=== PATIENT | female | born 1965 | race Caucasian/White ===

== ENCOUNTER 2020-02-17 15:14 | Emergency (ER) | payer BC ==
[2020-02-17] MEDS ORDERED: Zofran 4 MG/2 ML VIAL IV ONE (15:28)
--- NOTE | 2020-02-17 15:28 | ERPHSYRPT ---
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 Approximately 1 week ago patient began having symptoms of headache, sore throat, muscle aches and pains, nausea vomiting and diarrhea. Her symptoms have not improved per her report. Patient denies fever. She does not have chest pain. He is mildly short of breath. Timing/Duration: week(s) (one) Cough Quality/Degree: mild Possible Cause: no prior episodes, illness exposure (Possible COVID-19 exposure) Associated Symptoms: earache, muscle aches, shortness of breath, sore throat Allergies/Adverse Reactions: levofloxacin [From Levaquin] Allergy (Verified 08/20/15 18:33) Penicillins Allergy (Verified 08/20/15 18:33) Sulfa (Sulfonamide Antibiotics) [Sulfa(Sulfonamide Antibiotics)] Allergy (Verified 08/20/15 18:33) Home Medications: Gabapentin 600 mg PO BID 08/20/15 [History] Loratadine 10 mg [Claritin 10 mg] 10 mg PO DAILY PRN PRN 08/20/15 [History] Paroxetine HCl [Paxil] 20 mg PO DAILY 02/17/20 [History] clonazePAM [Clonazepam] 0.5 mg PO TID PRN PRN 02/17/20 [History] Hx Tetanus, Diphtheria Vaccination/Date Given: Yes Hx Influenza Vaccination/Date Given: Yes Hx Pneumococcal Vaccination/Date Given: Yes Travel Risk - International Travel Have you traveled outside of the country in past 3 weeks: No - Coronavirus Screening Are you exhibiting any of the following symptoms?: Yes Symptoms: Cough: New Onset, Shortness of Breath, Vomiting/Diarrhea, Headaches/Body Aches/Fatigue Close contact with a COVID-19 positive Pt in past 14-21 Days: Yes - Review of Systems Constitutional: No Symptoms Eyes: No Symptoms Ears, Nose, & Throat: Throat Pain Respiratory: Cough, Dyspnea Cardiac: No Symptoms Abdominal/Gastrointestinal: Nausea, Vomiting, Diarrhea Genitourinary Symptoms: No Symptoms Musculoskeletal: No Symptoms Skin: No Symptoms Neurological: No Symptoms Psychological: No Symptoms Endocrine: No Symptoms Hematologic/Lymphatic: No Symptoms Immunological/Allergic: No Symptoms All Other Systems: Reviewed and Negative - Past Medical History Pertinent Past Medical History: Yes Neurological History: Migraines ENT History: No Pertinent History Cardiac History: No Pertinent History Respiratory History: No Pertinent History Endocrine Medical History: Other (Pituitary tumor) Musculoskeletal History: No Pertinent History GI Medical History: No Pertinent History History: No Pertinent History Psycho-Social History: Depression Female Reproductive Disorders: No Pertinent History Other Medical History: CHRONIC BACK PAIN - Past Surgical History Past Surgical History: Yes Neuro Surgical History: No Pertinent History Cardiac: No Pertinent History Respiratory: No Pertinent History Gastrointestinal: Cholecystectomy Genitourinary: No Pertinent History Musculoskeletal: Orthopedic Surgery Female Surgical History: Tubal Ligation, Other Other Surgical History: nasal surgery - Social History Smoking Status: Current every day smoker How long have you smoked: 35 Exposure to second hand smoke: Yes Alcohol Use: Socially Drug Use: none Patient Lives Alone: No Significant Family History: other - Nursing Vital Signs Nursing Vital Signs: Initial Vital Signs Temperature 98.6 F 02/17/20 15:20 Pulse Rate 76 02/17/20 15:20 Respiratory Rate 18 02/17/20 15:20 Blood Pressure 165/100 02/17/20 15:20 O2 Sat by Pulse Oximetry 99 02/17/20 15:20 Pain Scale Pain Intensity 3 - Physical Exam General Appearance: no apparent distress, alert, anxiety Eye Exam: eyes nml inspection Ears, Nose, Throat Exam: normal ENT inspection, moist mucous membranes, other (eDentulous; tympanic membrane on the right shows chronic scarring. No infection present. Left tympanic membrane and canal are within normal limits) Neck Exam: normal inspection, non-tender, supple, full range of motion Respiratory Exam: normal breath sounds, lungs clear, airway intact, No chest tenderness, No respiratory distress Cardiovascular Exam: regular rate/rhythm, normal heart sounds, normal peripheral pulses Gastrointestinal/Abdomen Exam: soft, normal bowel sounds, No tenderness Pelvic Exam: not done Rectal Exam: not done Back Exam: normal inspection, normal range of motion, No CVA tenderness, No vertebral tenderness Extremity Exam: normal inspection, normal range of motion, pelvis stable Neurologic Exam: alert, oriented x 3, cooperative, 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 No comparison EKGs available) Ordered Tests: Active Orders 24 hr Category Date Time Status Analog Ic Design Architect STAT Care 02/17/20 17:03 Active EKG-ER Only STAT Care 02/17/20 15:28 Active IV Insertion STAT Care 02/17/20 15:28 Active Isolation, Initiate & Maintain STAT Care 02/17/20 15:28 Active Pulse Oximetry (ED) STAT Care 02/17/20 15:28 Active CHEST 1 VIEW (PORTABLE) Stat Exams 02/17/20 15:29 Completed CHEST WITH CONTRAST [CT] Stat Exams 02/17/20 17:04 Taken BLOOD CULTURE Stat Lab 02/17/20 16:10 Received CBC W DIFF Stat Lab 02/17/20 15:50 Completed CMP Stat Lab 02/17/20 15:50 Completed D-DIMER QUANTITATIVE Stat Lab 02/17/20 15:50 Completed Ferritin Stat Lab 02/17/20 15:50 Completed INFLUENZA A+B SHINE Stat Lab 02/17/20 16:15 Completed LDH-LACTATE DEHYDROGENASE Stat Lab 02/17/20 15:50 Completed Lactic Acid Stat Lab 02/17/20 15:46 Completed Marion Screen Stat Lab 02/17/20 15:50 Completed TROPONIN Q3H Lab 02/17/20 15:50 Completed TROPONIN Q3H Lab 02/17/20 18:30 Ordered TROPONIN Q3H Lab 02/17/20 21:30 Ordered TROPONIN Q3H Lab 02/18/20 00:30 Ordered TROPONIN Q3H Lab 02/18/20 03:30 Ordered Medication Summary Generic Name Dose Route Start Last Admin Trade Name Freq PRN Reason Stop Dose Admin Sodium Chloride 1,000 mls @ 100 mls/hr 02/17/20 15:30 02/17/20 15:46 Sodium Chloride 0.9% 1000 Ml IV 03/18/20 15:29 100 mls/hr .Q10H JHON Administration Potassium Chloride 20 meq in 100 mls @ 50 mls/hr 02/17/20 16:45 02/17/20 17:08 Potassium Chloride 20 Meq In Water 100ml IV 02/17/20 18:44 50 mls/hr STAT ONE Administration Discontinued Medications Generic Name Dose Route Start Last Admin Trade Name Fernando PRN Reason Stop Dose Admin Potassium Chloride Confirm 02/17/20 17:06 Potassium Chloride 20 Meq In Water 100ml Administered 02/17/20 17:07 Dose 100 mls @ ud IV .STK-MED ONE Ondansetron HCl 4 mg 02/17/20 15:28 02/17/20 15:47 Zofran 4 Mg/2 Ml Vial IV 02/17/20 15:29 4 mg STAT ONE Administration Ondansetron HCl Confirm 02/17/20 15:41 Zofran 4 Mg/2 Ml Vial Administered 02/17/20 15:42 Dose 4 mg .ROUTE .STK-MED ONE Potassium Chloride 20 meq 02/17/20 16:45 02/17/20 17:09 Klor Con 10 Meq PO 02/17/20 16:46 20 meq STAT ONE Administration Potassium Chloride Confirm 02/17/20 17:06 Klor Con 10 Meq Administered 02/17/20 17:07 Dose 20 meq PO .STK-MED ONE Lab/Rad Data: Laboratory Result Diagrams 02/17/20 15:50 02/17/20 15:50 Laboratory Results 02/17/20 02/17/20 02/17/20 Range/Units 16:15 16:15 15:50 WBC (4.0-10.5) K/mm3 RBC (4.1-5.4) M/mm3 Hgb (12.0-16.0) gm/dl Hct (35-47) % MCV (78-100) fl MCH (26-32) pg MCHC (32-36) g/dl RDW (11.5-14.0) % Plt Count (150-450) K/mm3 MPV (7.5-11.0) fl Gran % (36.0-66.0) % Eos # (Auto) (0-0.5) Absolute Lymphs (auto) (1.0-4.6) Absolute Monos (auto) (0.0-1.3) Lymphocytes % (24.0-44.0) % Monocytes % (0.0-12.0) % Eosinophils % (0.00-5.0) % Basophils % (0.0-0.4) % Absolute Granulocytes (1.4-6.9) Basophils # (0-0.4) D-Dimer (215-500) ng/mL Sodium (137-145) mmol/L Potassium (3.5-5.1) mmol/L Chloride (98-107) mmol/L Carbon Dioxide (22-30) mmol/L Anion Gap (5-15) MEQ/L BUN (7-17) mg/dL Creatinine (0.52-1.04) mg/dL Estimated GFR ML/MIN Glucose (74-106) mg/dL Lactic Acid (0.4-2.0) Calcium (8.4-10.2) mg/dL Ferritin (11.1-264) ng/mL Total Bilirubin (0.2-1.3) mg/dL AST (14-36) U/L ALT (0-35) U/L Alkaline Phosphatase (38-126) U/L Lactate Dehydrogenase (120-246) U/L Troponin I (0.000-0.034) ng/mL Serum Total Protein (6.3-8.2) g/dL Albumin (3.5-5.0) g/dL Monoscreen NEGATIVE (Negative) Influenza Type A Ag NEGATIVE (NEGATIVE) Influenza Type B Ag NEGATIVE (NEGATIVE) Group A Strep Antibody NOT DETECTED (NEGATIVE) 02/17/20 02/17/20 02/17/20 Range/Units 15:50 15:50 15:50 WBC (4.0-10.5) K/mm3 RBC (4.1-5.4) M/mm3 Hgb (12.0-16.0) gm/dl Hct (35-47) % MCV (78-100) fl MCH (26-32) pg MCHC (32-36) g/dl RDW (11.5-14.0) % Plt Count (150-450) K/mm3 MPV (7.5-11.0) fl Gran % (36.0-66.0) % Eos # (Auto) (0-0.5) Absolute Lymphs (auto) (1.0-4.6) Absolute Monos (auto) (0.0-1.3) Lymphocytes % (24.0-44.0) % Monocytes % (0.0-12.0) % Eosinophils % (0.00-5.0) % Basophils % (0.0-0.4) % Absolute Granulocytes (1.4-6.9) Basophils # (0-0.4) D-Dimer 709 H* (215-500) ng/mL Sodium (137-145) mmol/L Potassium (3.5-5.1) mmol/L Chloride (98-107) mmol/L Carbon Dioxide (22-30) mmol/L Anion Gap (5-15) MEQ/L BUN (7-17) mg/dL Creatinine (0.52-1.04) mg/dL Estimated GFR ML/MIN Glucose (74-106) mg/dL Lactic Acid (0.4-2.0) Calcium (8.4-10.2) mg/dL Ferritin 104 (11.1-264) ng/mL Total Bilirubin (0.2-1.3) mg/dL AST (14-36) U/L ALT (0-35) U/L Alkaline Phosphatase (38-126) U/L Lactate Dehydrogenase (120-246) U/L Troponin I < 0.012 (0.000-0.034) ng/mL Serum Total Protein (6.3-8.2) g/dL Albumin (3.5-5.0) g/dL Monoscreen (Negative) Influenza Type A Ag (NEGATIVE) Influenza Type B Ag (NEGATIVE) Group A Strep Antibody (NEGATIVE) 02/17/20 02/17/20 02/17/20 Range/Units 15:50 15:50 15:46 WBC 10.5 (4.0-10.5) K/mm3 RBC 4.43 (4.1-5.4) M/mm3 Hgb 13.4 (12.0-16.0) gm/dl Hct 42.0 (35-47) % MCV 94.8 (78-100) fl MCH 30.2 (26-32) pg MCHC 31.9 L (32-36) g/dl RDW 14.3 H (11.5-14.0) % Plt Count 249 (150-450) K/mm3 MPV 11.0 (7.5-11.0) fl Gran % 66.6 H (36.0-66.0) % Eos # (Auto) 0.28 (0-0.5) Absolute Lymphs (auto) 2.57 (1.0-4.6) Absolute Monos (auto) 0.65 (0.0-1.3) Lymphocytes % 24.4 (24.0-44.0) % Monocytes % 6.2 (0.0-12.0) % Eosinophils % 2.7 (0.00-5.0) % Basophils % 0.1 (0.0-0.4) % Absolute Granulocytes 7.01 H (1.4-6.9) Basophils # 0.01 (0-0.4) D-Dimer (215-500) ng/mL Sodium 141 (137-145) mmol/L Potassium 2.7 L* (3.5-5.1) mmol/L Chloride 103 (98-107) mmol/L Carbon Dioxide 31 H (22-30) mmol/L Anion Gap 10.9 (5-15) MEQ/L BUN 7 (7-17) mg/dL Creatinine 0.73 (0.52-1.04) mg/dL Estimated GFR > 60.0 ML/MIN Glucose 89 (74-106) mg/dL Lactic Acid 1.5 (0.4-2.0) Calcium 8.8 (8.4-10.2) mg/dL Ferritin (11.1-264) ng/mL Total Bilirubin 0.30 (0.2-1.3) mg/dL AST 24 (14-36) U/L ALT 15 (0-35) U/L Alkaline Phosphatase 84 (38-126) U/L Lactate Dehydrogenase 196 (120-246) U/L Troponin I (0.000-0.034) ng/mL Serum Total Protein 6.7 (6.3-8.2) g/dL Albumin 3.8 (3.5-5.0) g/dL Monoscreen (Negative) Influenza Type A Ag (NEGATIVE) Influenza Type B Ag (NEGATIVE) Group A Strep Antibody (NEGATIVE) - Progress Progress: improved, re-examined Air Movement: good Progress Note: 02/17/20 16:34 Chest x-ray shows no acute cardiopulmonary issues 02/17/20 18:06 CAT scan of the chest with contrast is negative for pulmonary embolism. There is a small hiatal hernia present. There are no acute cardiopulmonary findings Blood Culture(s) Obtained: Yes Antibiotics given: No Counseled pt/family regarding: lab results, diagnosis, need for follow-up, rad results - Departure Departure Disposition: Home Clinical Impression: Vomiting and diarrhea, Hypokalemia Condition: Stable Critical Care Time: No Referrals: KIET WILLETT MD [Primary Care Provider] - Additional Instructions: Drink plenty of fluids. Take your medication as prescribed. Follow-up with your primary care physician for further management. Quarantine yourself until you receive the COVID-19 test results. Return to the lab on 02/19/2020 for lab recheck of your potassium level. Forms: Work/School Release Form Prescriptions: Ondansetron ODT 4 MG [Zofran Odt 4 mg] 4 mg PO Q6H PRN PRN #10 tab.rapdis PRN Reason: Vomiting Potassium Chloride 10 Meq Tab* [Klor Con 10 MEQ] 10 meq PO DAILY #5 tab
[2020-02-17] MEDS ORDERED: Sodium Chloride 0.9% 1000 ML 1,000 ML IV SCH (15:30)
[2020-02-17] MEDS ORDERED: Sodium Chloride 0.9% 1000 ML 1,000 ML ONE (15:41)
[2020-02-17] MEDS ORDERED: Zofran 4 MG/2 ML VIAL ONE (15:41)
[2020-02-17 16:27] LABS: Absolute Neutrophil Ct (ANC) 7.01 (1.4-6.9); BASOPHIL % 0.1 % (0.0-0.4); Basophil (Absolute #) 0.01 (0-0.4); Eosinophil % 2.7 % (0.00-5.0); Eosinophil (Absolute #) 0.28 (0-0.5); Hemoglobin 13.4 gm/dl (12.0-16.0); Lymphocyte (Absolute #) 2.57 (1.0-4.6); Lymphocytes % 24.4 % (24.0-44.0); Mean Cell Volume 94.8 fl (78-100); Mean Corpuscular Hemoglobin 30.2 pg (26-32); Mean Corpuscular Hgb Concent. 31.9 g/dl (32-36); Monocyte (Absolute #) 0.65 (0.0-1.3); Monocytes % 6.2 % (0.0-12.0); Neutrophil % 66.6 % (36.0-66.0); Platelet Count 249 K/mm3 (150-450); Red Blood Count 4.43 M/mm3 (4.1-5.4); Red Cell Distribution Width 14.3 % (11.5-14.0); White Blood Count 10.5 K/mm3 (4.0-10.5)
--- NOTE | 2020-02-17 16:30 | XRAY ---
Indication: Cough, congestion, short of breath. Earache and fatigue. Comparison: January 03, 2019. Portable chest again demonstrates minimal left base subsegmental atelectasis/scarring and tiny hilar calcified nodes. Remaining heart and lungs unremarkable. Bony thorax intact again with mild scoliosis. No new/acute findings.
[2020-02-17 16:41] LABS: ALBUMIN 3.8 g/dL (3.5-5.0); ALKALINE PHOSPHATASE 84 U/L (38-126); ANION GAP 10.9 MEQ/L (5-15); BLOOD UREA NITROGEN 7 mg/dL (7-17); CHLORIDE 103 mmol/L (98-107); Calcium 8.8 mg/dL (8.4-10.2); Carbon Dioxide 31 mmol/L (22-30); Creatinine 1 0.73 mg/dL (0.52-1.04); EST GLOMERULAR FILTRATION RATE > 60.0 ML/MIN; Glucose 89 mg/dL (74-106); LDH-LACTATE DEHYDROGENASE 196 U/L (120-246); SGOT/AST 24 U/L (14-36); SGPT/ALT 15 U/L (0-35); SODIUM 141 mmol/L (137-145); Total Protein 6.7 g/dL (6.3-8.2)
[2020-02-17 16:41] LABS: INFLUENZA A NEGATIVE (NEGATIVE); INFLUENZA B NEGATIVE (NEGATIVE)
[2020-02-17 16:43] LABS: Potassium 2.7 mmol/L (3.5-5.1)
[2020-02-17] MEDS ORDERED: Klor Con 10 MEQ PO ONE ×2 (16:45→17:06)
[2020-02-17] MEDS ORDERED: POTASSIUM CHLORIDE 20 mEq IN WATER 100ML 20 MEQ/100 ML BAG IV ONE (16:45)
[2020-02-17] MEDS ORDERED: POTASSIUM CHLORIDE 20 mEq IN WATER 100ML 100 ML IV ONE (17:06)
[2020-02-17 19:51] VITALS: BP 136/91; PULSE 74; O2SAT 98
--- NOTE | 2020-02-18 09:00 | XRAY ---
Indication: Cough and short of breath. Elevated d-dimer. Multiple contiguous axial images obtained through the chest using 100 cc Isovue 370 contrast and PE protocol. Comparison: None There is good opacification of the pulmonary arteries to include the lobar and segmental branches. No pulmonary embolus. Heart is not enlarged. Aorta is normal in course and caliber. Small bilateral hilar calcified nodes. No pathologic mediastinal/hilar lymphadenopathy. Small hiatal hernia. Lungs demonstrates mild bilateral dependent atelectasis, biapical subpleural cystic changes, and minimal scattered peripheral fibrosis/scarring. No suspicious pulmonary mass, infiltrate, or effusion. Bony thorax intact. Limited upper abdomen demonstrates fatty liver. Impression: 1. Negative pulmonary embolus. No acute cardiopulmonary abnormalities. 2. Incidental scattered fibrosis/scarring, biapical subpleural cystic changes, fatty liver, and old granulomatous disease.
== END 2020-02-17 19:51 | disposition home or self-care (01) ==
LOC: ED 15:14
DX: R11.2 Nausea with vomiting, unspecified (principal); R51.9 Headache, unspecified; R07.0 Pain in throat; R05 Cough; E87.6 Hypokalemia; Z20.828 Contact with and (suspected) exposure to other viral communicable diseases; Z79.899 Other long term (current) drug therapy
CPT/HCPCS: 36000; 36415; 71045; 71260; 80053; 82728; 83605; 83615; 84484; 85025; 85379; 86308; 87040; 87400; 87651; 93005; 93041; 94760; 96360; 96361; 96365; 96366; 96374; 99284; J2405; J3480; U0003; A9270-GY

== ENCOUNTER 2020-11-11 13:18 | Emergency (ER) | payer BC ==
--- NOTE | 2020-11-11 13:21 | ERPHSYRPT ---
- History of Present Illness Time Seen by Provider: 11/11/20 13:21 Source: patient Exam Limitations: no limitations Physician History: This is a 55-year-old white female patient of Dr. Willett and has a history of asthma, migraine headaches, depression and chronic low back pain and smokes cigarettes every day and presents with 2 to 3-day history of worsening cough. She has no chest pain. He does have mild shortness of breath with coughing spells. She has no calf pain or leg pain. She has no abdominal pain. She has had no fevers chills. She denies nausea vomiting diarrhea. Patient has a history of chronic recurrent bronchitis as well. Patient has a Covid test pending. She is here today because of her worsening cough Timing/Duration: day(s) (Last few days) Cough Quality/Degree: mild (To moderate), dry cough Possible Cause: occasional episodes Modifying Factors: Improves With: coughing Associated Symptoms: cough, No fever, No chills, No chest pain/soreness, No headache, No muscle aches, No nasal congestion, No wheezing Allergies/Adverse Reactions: levofloxacin [From Levaquin] Allergy (Verified 11/11/20 13:41) Penicillins Allergy (Verified 11/11/20 13:41) Sulfa (Sulfonamide Antibiotics) [Sulfa(Sulfonamide Antibiotics)] Allergy (Verified 11/11/20 13:41) Home Medications: Gabapentin 600 mg PO BID 08/20/15 [History] Loratadine 10 mg [Claritin 10 mg] 10 mg PO DAILY PRN PRN 08/20/15 [History] Paroxetine HCl [Paxil] 20 mg PO DAILY 02/17/20 [History] clonazePAM [Clonazepam] 0.5 mg PO TID PRN PRN 02/17/20 [History] Hx Tetanus, Diphtheria Vaccination/Date Given: Yes Hx Influenza Vaccination/Date Given: Yes Hx Pneumococcal Vaccination/Date Given: Yes Travel Risk - International Travel Have you traveled outside of the country in past 3 weeks: No - Coronavirus Screening Are you exhibiting any of the following symptoms?: Yes Symptoms: Cough: New Onset, Shortness of Breath Close contact with a COVID-19 positive Pt in past 14-21 Days: Yes - Review of Systems Constitutional: No Symptoms Eyes: No Symptoms Ears, Nose, & Throat: No Symptoms Respiratory: Cough, Dyspnea (Mild with coughing) Cardiac: No Chest Pain Abdominal/Gastrointestinal: No Symptoms Genitourinary Symptoms: No Symptoms Musculoskeletal: No Symptoms Skin: No Symptoms Neurological: No Symptoms Psychological: No Symptoms Endocrine: No Symptoms Hematologic/Lymphatic: No Symptoms Immunological/Allergic: No Symptoms All Other Systems: Reviewed and Negative - Past Medical History Pertinent Past Medical History: Yes Neurological History: Migraines ENT History: No Pertinent History Cardiac History: No Pertinent History Respiratory History: No Pertinent History Endocrine Medical History: Other (Pituitary tumor) Musculoskeletal History: No Pertinent History GI Medical History: No Pertinent History History: No Pertinent History Psycho-Social History: Depression Female Reproductive Disorders: No Pertinent History Other Medical History: CHRONIC BACK PAIN - Past Surgical History Past Surgical History: Yes Neuro Surgical History: No Pertinent History Cardiac: No Pertinent History Respiratory: No Pertinent History Gastrointestinal: Cholecystectomy Genitourinary: No Pertinent History Musculoskeletal: Orthopedic Surgery Female Surgical History: Tubal Ligation, Other Other Surgical History: nasal surgery - Social History Smoking Status: Current every day smoker How long have you smoked: 35 Exposure to second hand smoke: Yes Alcohol Use: Socially Drug Use: none Patient Lives Alone: No Significant Family History: other - Nursing Vital Signs Nursing Vital Signs: Initial Vital Signs Pulse Rate 89 11/11/20 13:30 Respiratory Rate 20 11/11/20 13:30 Blood Pressure 161/69 11/11/20 13:30 O2 Sat by Pulse Oximetry 98 11/11/20 13:30 Pain Scale Pain Intensity 7 - Physical Exam General Appearance: no apparent distress, alert, anxiety Eye Exam: PERRL/EOMI, eyes nml inspection Ears, Nose, Throat Exam: normal ENT inspection, moist mucous membranes Neck Exam: normal inspection, non-tender, supple, full range of motion Respiratory Exam: normal breath sounds, lungs clear, airway intact, No chest tenderness, No respiratory distress Cardiovascular Exam: regular rate/rhythm, normal heart sounds, normal peripheral pulses Gastrointestinal/Abdomen Exam: soft, normal bowel sounds, No tenderness Pelvic Exam: not done Rectal Exam: not done Back Exam: normal inspection, normal range of motion, No CVA tenderness, No vertebral tenderness Extremity Exam: normal inspection, normal range of motion, No pelvis stable, No ashly's sign, No pedal edema, No swelling Neurologic Exam: alert, oriented x 3, cooperative, 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, normal mood/affect, nml cerebellar function, nml station & gait, sensation nml Skin Exam: normal color, warm, dry Lymphatic Exam: No adenopathy SpO2 Interpretation: normal O2 Delivery: Room Air - Course Nursing assessment & vital signs reviewed: Yes Ordered Tests: Active Orders 24 hr Category Date Time Status IV Insertion STAT Care 11/11/20 13:42 Ordered Medication Summary Generic Name Dose Route Start Last Admin Trade Name Freq PRN Reason Stop Dose Admin Ceftriaxone Sodium/Dextrose 1 g in 50 mls @ 100 mls/hr 11/11/20 13:42 Rocephin 1 Gm-D5w 50 Ml Bag IV 11/11/20 14:11 STAT STA Discontinued Medications Generic Name Dose Route Start Last Admin Trade Name Freq PRN Reason Stop Dose Admin Hydrocodone Bitart/Acetaminophen 10 ml 11/11/20 13:43 Hydrocodone-Acetamin 2.5-108/5 Ml Solution PO 11/11/20 13:44 STAT STA Methylprednisolone Sodium 0 mg 11/11/20 13:42 Succinate 125 mg/ Sterile IV 11/11/20 13:43 Water 2 ml STAT ONE - Progress Progress: improved, re-examined Air Movement: good Progress Note: 11/11/20 13:48 The patient's room air oxygenation is 98 to 99%. Her heart rate is in the low 80s. Her main issue is coughing. She is a daily smoker of cigarettes. I told the patient that she needs to stop smoking while ill. I discussed and offered a chest x-ray and the patient refuses at this time. I told her I would still treat her as though she may have a pneumonia/upper respiratory infection. Blood Culture(s) Obtained: No Antibiotics given: Yes Counseled pt/family regarding: diagnosis, need for follow-up - Departure Departure Disposition: Home Clinical Impression: Upper respiratory infection Condition: Stable Critical Care Time: No Referrals: KIET WILLETT MD [Primary Care Provider] - Additional Instructions: Drink plenty of fluids. Stop smoking cigarettes and avoid exposure to any type of smoke. Take your medication as prescribed. Return to the emergency department if symptoms worsen. Quarantine yourself until the results of your COVID-19 test returned. Forms: Work/School Release Form Prescriptions: Hydrocodone/Acetaminophen [Hydrocodone-Acetamn 7.5-325/15] 10 ml PO Q8H PRN PRN #120 ml MDD 30 ml PRN Reason: Cough Prednisone 10 mg [Deltasone 10 mg] 10 mg PO TID #12 tablet Albuterol 2.5 mg/3 ml Neb [Proventil 2.5 mg/3 ml Neb] 2.5 mg IH Q6H #25 Albuterol 8 gm Mdi Hfa [Ventolin Hfa MDI] 8 gm IH Q4H #1 gm Azithromycin 250 mg [Zithromax 250 MG TABLET] 250 mg PO ZPACK #6 tablet
[2020-11-11] MEDS ORDERED: solu-MEDROL 125 MG, Sterile H2O 10 ml 2 ML IV ONE ×2 (13:42)
[2020-11-11] MEDS ORDERED: ROCEPHIN 1 Gm-D5w 50 ml Bag** 1 G/50 ML IVPB IV STA (13:42)
[2020-11-11] MEDS ORDERED: HYDROCODONE-ACETAMIN 2.5-108/5 ML SOLUTION PO STA (13:43)
[2020-11-11] MEDS ORDERED: ROCEPHIN 1 Gm-D5w 50 ml Bag** 1 G/50 ML IVPB IV ONE (14:17)
[2020-11-11] MEDS ORDERED: HYDROCODONE-ACETAMIN 2.5-108/5 ML SOLUTION ONE ×2 (14:17→14:19)
[2020-11-11] MEDS ORDERED: solu-MEDROL ONE (14:17)
[2020-11-11] MEDS ORDERED: Sterile H2O 10 ml IJ ONE (14:17)
[2020-11-11 15:21] VITALS: BP 135/74; PULSE 78; O2SAT 97
== END 2020-11-11 15:22 | disposition home or self-care (01) ==
LOC: ED 13:18
DX: J06.9 Acute upper respiratory infection, unspecified (principal); R05 Cough; R06.02 Shortness of breath; F17.200 Nicotine dependence, unspecified, uncomplicated; Z79.899 Other long term (current) drug therapy; Z20.822 Contact with and (suspected) exposure to COVID-19
CPT/HCPCS: 36000; 96365; 96374; 99284; J0696; J2930; A9270-GY

== ENCOUNTER 2022-01-25 18:19 | Emergency (ER) | payer BC, OTHER ==
[2022-01-25] MEDS ORDERED: DUONEB 0.5-3 MG/3 ml Neb IH ONE ×2 (19:26→19:55)
[2022-01-25] MEDS ORDERED: solu-MEDROL 125 MG, Sterile H2O 10 ml 2 ML IV ONE ×2 (19:26)
[2022-01-25] MEDS ORDERED: Sterile H2O 10 ml IJ ONE (19:28)
[2022-01-25] MEDS ORDERED: solu-MEDROL ONE (19:28)
[2022-01-25] MEDS ORDERED: Sodium Chloride 0.9% 1000 ML 1,000 ML IV STA (19:29)
[2022-01-25] MEDS ORDERED: Sodium Chloride 0.9% 1000 ML 1,000 ML ONE (19:36)
[2022-01-25 20:08] LABS: Absolute Neutrophil Ct (ANC) 3.48 x10^3/uL (1.4-6.9); Basophil (Absolute #) 0.02 x10^3/uL (0-0.4); Eosinophil % 0.8 % (0.00-5.0); Eosinophil (Absolute #) 0.05 x10^3/uL (0-0.5); Hematocrit 48.6 % (35-47); Hemoglobin 15.3 g/dL (12.0-16.0); Lymphocytes % 33.8 % (24.0-44.0); Mean Cell Volume 95.3 fL (78-100); Mean Corpuscular Hgb Concent. 31.5 g/dL (32-36); Mean Platelet Volume 9.9 fL (7.5-11.0); Monocyte (Absolute #) 0.54 x10^3/uL (0.0-1.3); Monocytes % 8.7 % (0.0-12.0); Neutrophil % 56.1 % (36.0-66.0); Platelet Count 161 x10^3/uL (150-450); Red Cell Distribution Width 13.8 % (11.5-14.0); White Blood Count 6.2 x10^3/uL (4.0-10.5)
[2022-01-25 20:21] LABS: Bacteria RARE /HPF (NEGATIVE); Epithelial Cells RARE /HPF (FEW); Mucus SLIGHT /HPF (NEGATIVE); WBC 0-2 /HPF (0-5)
[2022-01-25 20:22] LABS: Appearance CLEAR (CLEAR); Bilirubin NEGATIVE (NEGATIVE); Glucose NEGATIVE (NEGATIVE); Ketones NEGATIVE (NEGATIVE); Protein,Urine Dip NEGATIVE (Negative); RBC SMALL Ery/ul (0-5)
[2022-01-25 20:23] LABS: Dipstick done @ ? MAIN LAB; Nitrite NEGATIVE (NEGATIVE); Urine Cultured Indicated? NO; Urobilinogen 0.2 mg/dL (0-1)
[2022-01-25 20:34] LABS: ALBUMIN 4.8 g/dL (3.5-5.0); ANION GAP 18.8 MEQ/L (5-15); BILIRUBIN,TOTAL 0.5 mg/dL (0.2-1.3); Creatinine 1 1.37 mg/dL (0.52-1.04); EST GLOMERULAR FILTRATION RATE 42.5 ML/MIN; Potassium 4.2 mmol/L (3.5-5.1); Total Protein 8.2 g/dL (6.3-8.2)
[2022-01-25 20:45] LABS: INFLUENZA B NEGATIVE (NEGATIVE); RESPIRATORY SYNCTIAL VIRUS NEGATIVE (Negative); SARS-CoV-2 Xpert Express NEGATIVE (NEGATIVE)
--- NOTE | 2022-01-25 20:45 | XRAY ---
Indication: Short of breath. Pneumonia. Comparison: February 17, 2020 Portable apical lordotic chest demonstrates normal heart and lungs. Bony thorax intact again with mild dextroscoliosis. No new/acute findings.
[2022-01-25 20:49] LABS: INFLUENZA A POSITIVE (NEGATIVE)
--- NOTE | 2022-01-25 21:05 | ERPHSYRPT ---
- History of Present Illness Time Seen by Provider: 01/25/22 19:11 Source: patient Exam Limitations: no limitations Patient Subjective Stated Complaint: Pt states "I have been to the dr a couple of tiems and on antibiotics a couple of times and I keep getting short of breath when I move and talk." Triage Nursing Assessment: PT presented alert and oriented X 3, skin pwd. Pt ambulates with a hunched over gait, able to speak in clear full sentences with O2 on NC. Upon arrival, pt could not speak in full sentences and pt Initial SpO2 was 90 Physician History: Patient is here with cough cold congestion. Has been going on for 3 weeks. Patient has been on multiple rounds of antibiotics. No other falls or trauma. No other chest pain, fever, chills. Patient states that she does smoke cigarettes. 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 Patient initially placed on O2 as patient Timing/Duration: week(s) Severity: mild Modifying Factors: Improves With: medication, movement, rest Associated Symptoms: denies symptoms Allergies/Adverse Reactions: levofloxacin [From Levaquin] Allergy (Verified 09/27/21 21:22) Penicillins Allergy (Verified 09/27/21 21:22) Sulfa (Sulfonamide Antibiotics) [Sulfa(Sulfonamide Antibiotics)] Allergy (Verified 09/27/21 21:22) Home Medications: Gabapentin 600 mg PO BID 08/20/15 [History] PARoxetine HCL [Paxil] 20 mg PO DAILY 02/17/20 [History] clonazePAM [Clonazepam] 0.5 mg PO TID PRN PRN 02/17/20 [History] Rosuvastatin Calcium 5 mg PO DAILY 09/27/21 [History] Hx Tetanus, Diphtheria Vaccination/Date Given: Yes Hx Influenza Vaccination/Date Given: No Hx Pneumococcal Vaccination/Date Given: No Immunizations Up to Date: Yes Travel Risk - International Travel Have you traveled outside of the country in past 3 weeks: No - Coronavirus Screening Symptoms: Shortness of Breath Close contact with a COVID-19 positive Pt in past 14-21 Days: No - Vaccine Status Have you recieved a Covid-19 vaccination: Yes 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 - Vaccination Dates Date of 2cond Vaccination (if applicable): 2019 - Review of Systems Constitutional: No Fever, No Chills Eyes: No Symptoms Ears, Nose, & Throat: No Symptoms Respiratory: Cough, Dyspnea Cardiac: No Chest Pain, No Edema, No Syncope Abdominal/Gastrointestinal: No Abdominal Pain, No Nausea, No Vomiting, No Diarrhea Genitourinary Symptoms: No Dysuria Musculoskeletal: No Back Pain, No Neck Pain Skin: No Rash Neurological: No Dizziness, No Focal Weakness, No Sensory Changes Psychological: No Symptoms Endocrine: No Symptoms All Other Systems: Reviewed and Negative - Past Medical History Pertinent Past Medical History: Yes Neurological History: Migraines, Peripheral Neuropathy ENT History: No Pertinent History Cardiac History: No Pertinent History Respiratory History: No Pertinent History Endocrine Medical History: Other Musculoskeletal History: No Pertinent History GI Medical History: No Pertinent History History: No Pertinent History Psycho-Social History: Depression Female Reproductive Disorders: No Pertinent History Other Medical History: CHRONIC BACK PAIN - Past Surgical History Past Surgical History: Yes Neuro Surgical History: No Pertinent History Cardiac: No Pertinent History Respiratory: No Pertinent History Gastrointestinal: Cholecystectomy Genitourinary: No Pertinent History Musculoskeletal: Orthopedic Surgery Female Surgical History: Tubal Ligation, Other Other Surgical History: nasal surgery - Social History Smoking Status: Former smoker How long have you smoked: 35 Exposure to second hand smoke: No Alcohol Use: Socially Drug Use: none Patient Lives Alone: No Significant Family History: other - Nursing Vital Signs Nursing Vital Signs: Initial Vital Signs Temperature 97.8 F 01/25/22 18:20 Pulse Rate 71 01/25/22 18:20 Respiratory Rate 20 01/25/22 18:20 Blood Pressure 117/73 01/25/22 18:20 O2 Sat by Pulse Oximetry 100 01/25/22 18:20 Pain Scale Pain Intensity 0 - Physical Exam General Appearance: no apparent distress, alert Eye Exam: PERRL/EOMI, eyes nml inspection Ears, Nose, Throat Exam: normal ENT inspection, TMs normal, pharynx normal, moist mucous membranes Neck Exam: normal inspection, non-tender, supple, full range of motion Respiratory Exam: wheezing, other (Minimal wheezing, cough), No respiratory distress Cardiovascular Exam: regular rate/rhythm, normal heart sounds, normal peripheral pulses Gastrointestinal/Abdomen Exam: soft, normal bowel sounds, No tenderness, No mass Back Exam: normal inspection, normal range of motion, No CVA tenderness, No vertebral tenderness Extremity Exam: normal inspection, normal range of motion, pelvis stable Neurologic Exam: alert, oriented x 3, cooperative, normal mood/affect, nml cerebellar function, nml station & gait, sensation nml, No motor deficits Skin Exam: normal color, warm, dry, No rash Lymphatic Exam: No adenopathy SpO2: 100 - Course Nursing assessment & vital signs reviewed: Yes Ordered Tests: Active Orders 24 hr Category Date Time Status EKG-ER Only STAT Care 01/25/22 19:23 Completed IV Insertion STAT Care 01/25/22 19:23 Completed CHEST 1 VIEW (PORTABLE) Stat Exams 01/25/22 20:28 Completed CBC W DIFF Stat Lab 01/25/22 19:55 Completed CMP Stat Lab 01/25/22 19:55 Completed LIPASE Stat Lab 01/25/22 19:55 Completed TROPONIN Q4H Lab 01/25/22 19:55 Completed UA W/RFX CULTURE Stat Lab 01/25/22 20:02 Completed Respiratory Therapy Assessment DAILY RT 01/25/22 20:29 Completed Medication Summary Discontinued Medications Generic Name Dose Route Start Last Admin Trade Name Freq PRN Reason Stop Dose Admin Albuterol/Ipratropium 3 ml 01/25/22 19:26 01/25/22 20:00 Ipratropium/Albuterol Sulfate 3 Ml Ampul.Neb IH 01/25/22 19:27 3 ml STAT ONE Administration Albuterol/Ipratropium Confirm 01/25/22 19:55 Ipratropium/Albuterol Sulfate 3 Ml Ampul.Neb Administered 01/25/22 19:56 Dose 3 ml IH .STK-MED ONE Methylprednisolone Sodium 0 mg 01/25/22 19:26 01/25/22 19:28 Succinate 125 mg/ Sterile IV 01/25/22 19:27 125 mg Water 2 ml STAT ONE Administration Sodium Chloride 1,000 mls @ 999 mls/hr 01/25/22 19:29 01/25/22 20:52 Sodium Chloride 0.9% 1000 Ml IV 01/25/22 20:29 Infused .Q1H1M STA Infusion Sodium Chloride Confirm 01/25/22 19:36 Sodium Chloride 0.9% 1000 Ml Administered 01/25/22 19:37 Dose 1,000 mls @ ud .ROUTE .STK-MED ONE Methylprednisolone Sodium Succinate Confirm 01/25/22 19:28 Methylprednis Sod Succ 125 Mg/2 Ml Vial Administered 01/25/22 19:29 Dose 125 mg .ROUTE .STK-MED ONE Sterile Water Confirm 01/25/22 19:28 Water For Injection,Sterile 10 Ml Vial Administered 01/25/22 19:29 Dose 10 ml IJ .K-MED ONE Lab/Rad Data: Laboratory Result Diagrams 01/25/22 19:55 01/25/22 19:55 Laboratory Results 01/25/22 01/25/22 01/25/22 Range/Units 20:02 19:55 19:55 WBC (4.0-10.5) x10^3/uL RBC (4.1-5.4) x10^6/uL Hgb (12.0-16.0) g/dL Hct (35-47) % MCV (78-100) fL MCH (26-32) pg MCHC (32-36) g/dL RDW (11.5-14.0) % Plt Count (150-450) x10^3/uL MPV (7.5-11.0) fL Gran % (36.0-66.0) % Immature Gran % (Auto) (0.00-0.4) % Nucleat RBC Rel Count (0.00-0.1) % Eos # (Auto) (0-0.5) x10^3/uL Immature Gran # (Auto) (0.00-0.03) x10^3u/L Absolute Lymphs (auto) (1.0-4.6) x10^3/uL Absolute Monos (auto) (0.0-1.3) x10^3/uL Absolute Nucleated RBC (0.00-0.01) x10^3u/L Lymphocytes % (24.0-44.0) % Monocytes % (0.0-12.0) % Eosinophils % (0.00-5.0) % Basophils % (0.0-0.4) % Absolute Granulocytes (1.4-6.9) x10^3/uL Basophils # (0-0.4) x10^3/uL Sodium (137-145) mmol/L Potassium (3.5-5.1) mmol/L Chloride (98-107) mmol/L Carbon Dioxide (22-30) mmol/L Anion Gap (5-15) MEQ/L BUN (7-17) mg/dL Creatinine (0.52-1.04) mg/dL Estimated GFR ML/MIN Glucose (74-106) mg/dL Calcium (8.4-10.2) mg/dL Total Bilirubin (0.2-1.3) mg/dL AST (14-36) U/L ALT (0-35) U/L Alkaline Phosphatase (38-126) U/L Troponin I 0.019 (0.000-0.034) ng/mL Serum Total Protein (6.3-8.2) g/dL Albumin (3.5-5.0) g/dL Lipase (23-300) U/L Urinalys Dipstick Clnc MAIN LAB Urine Color YELLOW (YELLOW) Urine Appearance CLEAR (CLEAR) Urine pH 5.0 (5-6) Ur Specific [place] 1.020 (1.005-1.025) POC Urine Protein Conf NEGATIVE (Negative) Urine Ketones NEGATIVE (NEGATIVE) Urine Nitrite NEGATIVE (NEGATIVE) Urine Bilirubin NEGATIVE (NEGATIVE) Urine Urobilinogen 0.2 (0-1) mg/dL Urine Leukocytes NEGATIVE (NEGATIVE) Urine WBC (Auto) 0-2 (0-5) /HPF Urine RBC (Auto) 3-5 A (0-2) /HPF U Hyaline Cast (Auto) 11-25 A (0-2) /LPF U Epithel Cells (Auto) RARE (FEW) /HPF Urine Bacteria (Auto) RARE (NEGATIVE) /HPF Urine RBC SMALL A (0-5) [place]/ul Urine Mucus (Auto) SLIGHT A (NEGATIVE) /HPF Ur Culture Indicated? NO Urine Glucose NEGATIVE (NEGATIVE) mg/dL Influenza Type A Ag POSITIVE (NEGATIVE) Influenza Type B Ag NEGATIVE (NEGATIVE) RSV (PCR) NEGATIVE (Negative) SARS-CoV-2 (PCR) NEGATIVE (NEGATIVE) 01/25/22 01/25/22 Range/Units 19:55 19:55 WBC 6.2 (4.0-10.5) x10^3/uL RBC 5.10 (4.1-5.4) x10^6/uL Hgb 15.3 (12.0-16.0) g/dL Hct 48.6 H (35-47) % MCV 95.3 (78-100) fL MCH 30.0 (26-32) pg MCHC 31.5 L (32-36) g/dL RDW 13.8 (11.5-14.0) % Plt Count 161 (150-450) x10^3/uL MPV 9.9 (7.5-11.0) fL Gran % 56.1 (36.0-66.0) % Immature Gran % (Auto) 0.3 (0.00-0.4) % Nucleat RBC Rel Count 0.0 (0.00-0.1) % Eos # (Auto) 0.05 (0-0.5) x10^3/uL Immature Gran # (Auto) 0.02 (0.00-0.03) x10^3u/L Absolute Lymphs (auto) 2.10 (1.0-4.6) x10^3/uL Absolute Monos (auto) 0.54 (0.0-1.3) x10^3/uL Absolute Nucleated RBC 0.00 (0.00-0.01) x10^3u/L Lymphocytes % 33.8 (24.0-44.0) % Monocytes % 8.7 (0.0-12.0) % Eosinophils % 0.8 (0.00-5.0) % Basophils % 0.3 (0.0-0.4) % Absolute Granulocytes 3.48 (1.4-6.9) x10^3/uL Basophils # 0.02 (0-0.4) x10^3/uL Sodium 139 (137-145) mmol/L Potassium 4.2 (3.5-5.1) mmol/L Chloride 100 (98-107) mmol/L Carbon Dioxide 25 (22-30) mmol/L Anion Gap 18.8 H (5-15) MEQ/L BUN 14 (7-17) mg/dL Creatinine 1.37 H (0.52-1.04) mg/dL Estimated GFR 42.5 ML/MIN Glucose 105 (74-106) mg/dL Calcium 10.0 (8.4-10.2) mg/dL Total Bilirubin 0.50 (0.2-1.3) mg/dL AST 55 H (14-36) U/L ALT 32 (0-35) U/L Alkaline Phosphatase 113 (38-126) U/L Troponin I (0.000-0.034) ng/mL Serum Total Protein 8.2 (6.3-8.2) g/dL Albumin 4.8 (3.5-5.0) g/dL Lipase 148 (23-300) U/L Urinalys Dipstick Clnc Urine Color (YELLOW) Urine Appearance (CLEAR) Urine pH (5-6) Ur Specific [place] (1.005-1.025) POC Urine Protein Conf (Negative) Urine Ketones (NEGATIVE) Urine Nitrite (NEGATIVE) Urine Bilirubin (NEGATIVE) Urine Urobilinogen (0-1) mg/dL Urine Leukocytes (NEGATIVE) Urine WBC (Auto) (0-5) /HPF Urine RBC (Auto) (0-2) /HPF U Hyaline Cast (Auto) (0-2) /LPF U Epithel Cells (Auto) (FEW) /HPF Urine Bacteria (Auto) (NEGATIVE) /HPF Urine RBC (0-5) [place]/ul Urine Mucus (Auto) (NEGATIVE) /HPF Ur Culture Indicated? Urine Glucose (NEGATIVE) mg/dL Influenza Type A Ag (NEGATIVE) Influenza Type B Ag (NEGATIVE) RSV (PCR) (Negative) SARS-CoV-2 (PCR) (NEGATIVE) - Progress Progress: improved Progress Note: 01/26/22 00:53 Patient given breathing treatment, steroids, fluids. Basic labs, chest x-ray. No pneumonias. Patient is influenza positive. This does fit with patient's overall picture. She was offered admission. No longer on any O2. Was able to ambulate without difficulty. Plan for Tamiflu and steroids going home. Patient already has home nebulizer. She should continue to use this. Answered all patient's questions. Ultimately, she did state she wanted to go home. She may return here at any point time should she get worsening symptoms. - Departure Departure Disposition: Home Clinical Impression: Influenza A Condition: Stable Critical Care Time: No Referrals: KIET WILLETT MD [Primary Care Provider] - Follow up/PCP as directed Instructions: Shortness of Breath (Dyspnea) (DC) Prescriptions: Prednisone 10 mg [Deltasone 10 mg] 40 mg PO DAILY 5 Days #100 tablet Oseltamivir 75 mg [Tamiflu 75MG Capsule] 75 mg PO BID #10 cap
[2022-01-25 21:21] VITALS: BP 119/66; PULSE 70
[2022-01-26 00:54] VITALS: O2SAT 100
== END 2022-01-25 21:20 | disposition home or self-care (01) ==
LOC: ED 18:19
DX: J10.1 Influenza due to other identified influenza virus with other respiratory manifestations (principal); R05.9 Cough, unspecified; R09.81 Nasal congestion; Z72.0 Tobacco use; Z79.52 Long term (current) use of systemic steroids; Z79.899 Other long term (current) drug therapy
CPT/HCPCS: 0241U; 36000; 36415; 71045; 80053; 81015; 83690; 84484; 85025; 93005; 94640; 96360; 96374; 99284; J2930; A9270-GY

== ENCOUNTER 2022-09-10 07:53 | Emergency (ER) | payer BC ==
[2022-09-10 08:33] VITALS: BP 133/76; PULSE 77
--- NOTE | 2022-09-10 08:35 | ERPHSYRPT ---
- History of Present Illness Time Seen by Provider: 09/10/22 08:15 Source: patient Exam Limitations: no limitations Physician History: 57 years old female presented in the ER with chief complaint of bilateral ear discharge and pain for the last 4 days with progressive worsening. Moderate intensity sharp throbbing pain more on the left than the right. Denies fever or chills. Does report having some sore throat. Timing/Duration: gradual onset Severity: moderate ENT Location: ear (R), ear (L) Prearrival Treatment: over the counter meds Associated Symptoms: ear pain (R), ear pain (L), ear drainage Allergies/Adverse Reactions: levofloxacin [From Levaquin] Allergy (Verified 09/10/22 08:33) Penicillins Allergy (Verified 09/10/22 08:33) Sulfa (Sulfonamide Antibiotics) [Sulfa(Sulfonamide Antibiotics)] Allergy (Verified 09/10/22 08:33) Home Medications: Gabapentin 600 mg PO BID 08/20/15 [History] PARoxetine HCL [Paxil] 20 mg PO DAILY 02/17/20 [History] clonazePAM [Clonazepam] 0.5 mg PO TID PRN PRN 02/17/20 [History] Rosuvastatin Calcium 5 mg PO DAILY 09/27/21 [History] Hydrocortisone 20 mg PO DAILY 09/10/22 [History] Hx Tetanus, Diphtheria Vaccination/Date Given: Yes Hx Influenza Vaccination/Date Given: No Hx Pneumococcal Vaccination/Date Given: No Travel Risk - Vaccine Status Have you recieved a Covid-19 vaccination: Yes 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 - Vaccination Dates Date of 2cond Vaccination (if applicable): 2019 - Review of Systems Constitutional: No Symptoms Eyes: No Symptoms Ears, Nose, & Throat: Ear Pain, Ear Discharge, Throat Swelling Respiratory: No Symptoms Cardiac: No Symptoms Abdominal/Gastrointestinal: No Symptoms Genitourinary Symptoms: No Symptoms Musculoskeletal: No Symptoms Neurological: No Symptoms Hematologic/Lymphatic: No Symptoms Immunological/Allergic: No Symptoms - Past Medical History Pertinent Past Medical History: Yes Neurological History: Migraines, Peripheral Neuropathy ENT History: No Pertinent History Cardiac History: No Pertinent History Respiratory History: No Pertinent History Endocrine Medical History: Other Musculoskeletal History: No Pertinent History GI Medical History: No Pertinent History History: No Pertinent History Psycho-Social History: Depression Female Reproductive Disorders: No Pertinent History Other Medical History: CHRONIC BACK PAIN - Past Surgical History Past Surgical History: Yes Neuro Surgical History: No Pertinent History Cardiac: No Pertinent History Respiratory: No Pertinent History Gastrointestinal: Cholecystectomy Genitourinary: No Pertinent History Musculoskeletal: Orthopedic Surgery Female Surgical History: Tubal Ligation, Other Other Surgical History: nasal surgery - Social History Smoking Status: Former smoker How long have you smoked: 35 Exposure to second hand smoke: No Alcohol Use: Socially Drug Use: none Patient Lives Alone: No Significant Family History: other - Nursing Vital Signs Nursing Vital Signs: Initial Vital Signs Temperature 98.0 F 09/10/22 08:22 Pulse Rate 77 09/10/22 08:22 Blood Pressure 133/76 09/10/22 08:22 O2 Sat by Pulse Oximetry 100 09/10/22 08:22 Pain Scale Pain Intensity 4 - Physical Exam General Appearance: no apparent distress, alert Eye Exam: bilateral eye: normal inspection, PERRL, EOMI Ear Exam: bilateral ear: auricle normal, erythema, tenderness, TM red Nasal Exam: normal inspection Throat Exam: normal, pharynx normal, moist mucus membranes, pharynx tenderness Neck Exam: normal inspection, non-tender, supple, full range of motion, lymphadenopathy (R), lymphadenopathy (L) Cardiovascular/Respiratory Exam: normal breath sounds, regular rate/rhythm Neurologic Exam: alert, oriented x 3, cooperative, billet grinder II-XII nml as tested Skin Exam: normal color SpO2 Interpretation: normal SpO2: 96 O2 Delivery: Room Air - Progress Progress: unchanged Progress Note: 09/10/22 08:32 57 years old female presented in the ER with chief complaint of bilateral ear discharge and pain for the last 4 days with progressive worsening. Moderate intensity sharp throbbing pain more on the left than the right. Denies fever or chills. Does report having some sore throat. Patient has otitis media and some externa. Started on oral and topical antibiotics. Outpatient follow-up recommended cardiac Counseled pt/family regarding: diagnosis, need for follow-up - Departure Departure Disposition: Home Clinical Impression: Otitis media, Otitis externa Condition: Stable Critical Care Time: No Referrals: KIET WILLETT MD [Primary Care Provider] - Follow up with PCP 2 days Instructions: Outer Ear Infection (DC) Additional Instructions: Use Tylenol/ibuprofen as needed for pain. Follow-up with primary care for reevaluation early next week. Return to ER for any worsening. Prescriptions: Joe/Baci/Poly/Hc Ear Susp [Cortisporin Ear Drops 10 ml Suspension] 4 drop OT TID 7 Days #10 ml Azithromycin 250 mg [Zithromax 250 MG TABLET] 250 mg PO ZPACK #6 tablet
[2022-09-10 21:17] VITALS: O2SAT 96
== END 2022-09-10 08:44 | disposition home or self-care (01) ==
LOC: ED 07:53
DX: H66.93 Otitis media, unspecified, bilateral (principal); H60.93 Unspecified otitis externa, bilateral; H92.03 Otalgia, bilateral; J02.9 Acute pharyngitis, unspecified; Z79.899 Other long term (current) drug therapy
CPT/HCPCS: 99281